=== PATIENT | male | born 1955 | race African-American/Black ===

== ENCOUNTER 2024-02-28 01:15 | Inpatient (IN) | payer MEDICARE, MEDICAID ==
[~2024-02-28] VITALS: Ht 182.9 cm; Wt 132.9 kg
[2024-02-28] VITALS (11 sets, daily range): BP systolic 145–189; BP diastolic 84–105; PULSE 65–88; RESP 16–22; TEMP 36.2512–36.9474; O2SAT 95–100
[2024-02-28 03:13] LABS: HEMATOCRIT. 28.8 % (42.0-52.0); HEMOGLOBIN. 9.3 g/dL (14.0-18.0); MEAN CORPUSCULAR HEMOGLOBIN 27.4 pg (28.0-32.0); MEAN CORPUSCULAR HGB CONC 32.4 g/dL (31.0-37.0); MEAN CORPUSCULAR VOLUME 84.6 fL (80.0-94.0); MEAN PLATELET VOLUME 9.1 fl (7.4-10.4); PLATELET 158 x1000/uL (130-400); RED CELL DISTRIBUTION WIDTH 16.3 % (11.6-14.6); WHITE BLOOD COUNT 9.8 x1000/uL (4.5-11.0)
[2024-02-28 03:15] LABS: DIFFERENTIAL COMMENT 1
[2024-02-28 03:22] LABS: CHLORIDE 104 mEq/L (98-107); SODIUM 136 mEq/L (136-145)
[2024-02-28 03:23] LABS: CARBON DIOXIDE 16 mEq/L (21-32)
[2024-02-28 03:24] LABS: CALCIUM 9.4 mg/dL (8.7-10.4)
[2024-02-28 03:29] LABS: GLUCOSE 113 mg/dL (70-105); UREA NITROGEN BLOOD 81 mg/dL (9-23)
[2024-02-28 03:30] LABS: TROPONIN I HIGH SENSITIVITY 43 ng/L (3.0-53)
[2024-02-28 03:42] LABS: ETHANOL BLOOD < 10 mg/dL (<10)
[2024-02-28 03:43] LABS: POTASSIUM 6.5 mEq/L (3.5-5.1)
[2024-02-28 04:14] LABS: CLARITY URINE CLEAR (CLEAR); COLOR URINE YELLOW (YELLOW); GLUCOSE URINE NEGATIVE (NEGATIVE); KETONES URINE NEGATIVE (NEGATIVE); LEUKOCYTE ESTERASE URINE 1+ (NEGATIVE); NITRITE URINE NEGATIVE (NEGATIVE); OCCULT BLOOD URINE 1+ (NEGATIVE); PROTEIN URINE NEGATIVE (NEGATIVE); SPECIFIC GRAVITY URINE 1.007 (1.005-1.030); UROBILINOGEN URINE 0.2 E.U./dL (0.2-1.0)
[2024-02-28 04:32] LABS: *AMPHETAMINES SCREEN URINE NEGATIVE (NEGATIVE); *BARBITURATES SCREEN URINE NEGATIVE (NEGATIVE); *BENZODIAZEPINES SCREEN URINE NEGATIVE (NEGATIVE); *COCAINE SCREEN URINE PRESUMPTIVE POSITIVE (NEGATIVE); CANNABINOID URINE SCREEN NEGATIVE (NEGATIVE); ECSTASY MDMA SCREEN URINE NEGATIVE (NEGATIVE); METHADONE URINE SCREEN NEGATIVE (NEGATIVE); OPIATES URINE SCREEN NEGATIVE (NEGATIVE); PHENCYCLIDINE URINE SCREEN NEGATIVE (NEGATIVE)
[2024-02-28 04:43] LABS: PLATELET ESTIMATE NORMAL
[2024-02-28] MEDS: MORPHINE SULFATE 2 MG/ML INJ (NOT FOR IM USE) IV ONE (04:53)
[2024-02-28] MEDS: DEXTROSE 50% WATER 50ML SYRINGE IV ONE (04:56)
[2024-02-28] MEDS: CALCIUM GLUCONATE 100MG/ML 10ML VIAL IV ONE (04:57)
[2024-02-28] MEDS: FUROSEMIDE 100MG/10ML VIAL IV STA (04:57)
[2024-02-28] MEDS: INSULIN REGULAR (HUMULIN R) 1000UNITS/10ML VIAL IV ONE (05:00)
[2024-02-28 05:33] LABS: BACTERIA URINE NONE SEEN; SQUAMOUS EPITHELIAL CELL URINE FEW /lpf (RARE/1+)
[2024-02-28] MEDS ORDERED: ACETAMINOPHEN 325MG TABLET PO PRN (06:30)
[2024-02-28] MEDS ORDERED: MAGNESIUM/ALUMINUM HYDROXIDE/SIMETHICONE 30ML UDC PO PRN (06:30)
[2024-02-28] MEDS ORDERED: GUAIFENESIN 200MG/10ML SUGAR FREE UDC PO PRN (06:30)
[2024-02-28] MEDS: SODIUM POLYSTYRENE SULFONATE 15 G/60 ML BOT PO NR (06:46)
[2024-02-28] MEDS: NITROGLYCERIN 0.4MG TABLET SL SL PRN (06:46)
[2024-02-28 08:08] LABS: IRON 69 ug/dL (65-175)
[2024-02-28 08:09] LABS: LDL CHOLESTEROL 100 mg/dL (5-100); TRIGLYCERIDE 93 mg/dL (0-150)
[2024-02-28 08:10] LABS: CHOLESTEROL 165 mg/dL (<200); HDL CHOLESTEROL 43 mg/dL (>55)
[2024-02-28 08:11] LABS: TOTAL IRON BINDING CAPACITY 183 ug/dl (250-425)
[2024-02-28 08:13] LABS: THYROID STIMULATING HORMONE 1.92 uIU/mL (0.55-4.78)
[2024-02-28 08:16] LABS: VITAMIN B12 SERUM 524 pg/mL (211-911)
[2024-02-28 08:27] LABS: HEPATITIS B SURFACE ANTIGEN NEGATIVE (Negative)
[2024-02-28 08:47] LABS: HEPATITIS A AB IGM NEGATIVE (Negative)
[2024-02-28 08:48] LABS: HEPATITIS B CORE AB IGM NEGATIVE (Negative); HEPATITIS C AB NON REACTIVE (Neg) (Negative)
[2024-02-28] MEDS: FAMOTIDINE 20MG TABLET PO SCH (09:17)
[2024-02-28] MEDS: NIFEDIPINE XL 60MG TAB PO SCH (09:17)
[2024-02-28] MEDS: ASPIRIN 81MG EC TABLET PO SCH (09:17)
[2024-02-28] MEDS: ENOXAPARIN 30MG/0.3ML SYR SUBCUT SCH (09:18)
[2024-02-28 09:20] LABS: CHLORIDE 103 mEq/L (98-107); SODIUM 136 mEq/L (136-145)
[2024-02-28 09:21] LABS: CARBON DIOXIDE 19 mEq/L (21-32)
[2024-02-28 09:22] LABS: CALCIUM 10.2 mg/dL (8.7-10.4)
[2024-02-28 09:26] LABS: GLUCOSE 80 mg/dL (70-105)
[2024-02-28 09:27] LABS: UREA NITROGEN BLOOD 92 mg/dL (9-23)
[2024-02-28] MEDS: LORAZEPAM 2MG/ML INJ ONE (09:31)
[2024-02-28 09:36] LABS: POTASSIUM 6.8 mEq/L (3.5-5.1)
[2024-02-28] MEDS ORDERED: LEVETIRACETAM 500MG PREMIX 100 ML IV SCH ×3 (09:45→21:00)
[2024-02-28 10:02] LABS: PARTIAL THROMBOPLASTIN TIME 24.4 sec (23.4-31.0); PROTHROMBIN TIME 11.1 sec (9.6-11.0)
[2024-02-28 10:14] LABS: BASOPHILS % 0.2 % (0.0-2.0); EOSINOPHILS % 0.5 % (0.0-5.0); HEMATOCRIT. 28.2 % (42.0-52.0); HEMOGLOBIN. 9.1 g/dL (14.0-18.0); LYMPHOCYTES % 9.4 % (20.0-50.0); MEAN CORPUSCULAR HEMOGLOBIN 27.2 pg (28.0-32.0); MEAN CORPUSCULAR HGB CONC 32.4 g/dL (31.0-37.0); MEAN PLATELET VOLUME 9.4 fl (7.4-10.4); MONOCYTES % 6.6 % (2.0-8.0); NEUTROPHILS % 83.3 % (40.0-76.0); PLATELET 164 x1000/uL (130-400); RED BLOOD CELL COUNT 3.35 mill/uL (4.7-6.1); WHITE BLOOD COUNT 9.5 x1000/uL (4.5-11.0)
[2024-02-28 10:26] LABS: T4 FREE 1.17 ng/dL (0.89-1.76)
[2024-02-28] MEDS ORDERED: LIDOCAINE HCL 1% 10 MG/ML 10ML VIAL ONE (10:33)
[2024-02-28 10:48] LABS: BG BASE EXCESS -16.8 mmol/L (-2.0-2.0); BG CARBOXYHEMOGLOBIN 0.8 % (0.5-1.5); BG DEOXYHEMOGLOBIN 2.9 % (0.0-5.0); BG FRACTION INSPIRED OXYGEN 40; BG HCO3 ACT 10.7 mmol/L (22.0-26.0); BG OXYGEN SATURATION 97.1 % (92.0-98.5); BG OXYHEMOGLOBIN 96.3 % (94.0-97.0); BG PCO2 31.2 mmHg (35.0-45.0); BG PH 7.153 (7.350-7.450); BG PO2 115.3 mmHg (75.0-100.0); BG SAMPLE SITE RIGHT RADIAL; BG TOTAL HEMOGLOBIN 10.4 g/dL (12.0-18.0); BG VENT MODE NASAL CANNULA
[2024-02-28] MEDS: CLONIDINE 0.1MG TABLET PO PRN (15:40)
[2024-02-28] MEDS: SODIUM BICARBONATE 8.4% 50MEQ/50ML SYR IV NR ×2 (15:41→18:57)
[2024-02-28] MEDS: PHENYTOIN SODIUM 1,000 MG in SODIUM CHLORIDE 0.9% 100 ML IV NR (15:41)
[2024-02-28] MEDS: SODIUM ZIRCONIUM CYCLOSILICATE 10GM/PACKET PO NR (15:42)
[2024-02-28] MEDS: DEXTROSE 50% WATER 50ML SYRINGE IV NR (15:42)
[2024-02-28] MEDS: INSULIN REGULAR (HUMULIN R) 1000UNITS/10ML VIAL IV NR (15:44)
[2024-02-28 16:32] LABS: CREATINE KINASE MB FRACTION 4.4 ng/mL (0.5-3.6)
[2024-02-28] MEDS ORDERED: LEVETIRACETAM 1,000MG in NACL 100ML PREMIX IV SCH (21:00)
[2024-02-28] MEDS: ACETAMINOPHEN 325MG TABLET PO PRN (22:03)
[2024-02-28] MEDS: ZOLPIDEM TARTRATE 5MG TABLET PO PRN (22:03)
[2024-02-28] MEDS: LEVETIRACETAM 1000MG PREMIX 100 ML IV SCH (22:04)
[2024-02-28] MEDS: ENOXAPARIN 100MG/ML SYR SUBCUT SCH (22:28)
[2024-02-29] VITALS (9 sets, daily range): BP systolic 142–174; BP diastolic 74–112; PULSE 66–88; RESP 16–20; TEMP 36.44736–37.66968; O2SAT 92–100
[2024-02-29 01:31] LABS: CREATINE KINASE MB FRACTION 3.2 ng/mL (0.5-3.6)
[2024-02-29 09:48] LABS: BASOPHILS % 0.4 % (0.0-2.0); EOSINOPHILS % 5.8 % (0.0-5.0); HEMATOCRIT. 28.2 % (42.0-52.0); HEMOGLOBIN. 9.2 g/dL (14.0-18.0); LYMPHOCYTES % 18.8 % (20.0-50.0); MEAN CORPUSCULAR HEMOGLOBIN 27.5 pg (28.0-32.0); MEAN CORPUSCULAR HGB CONC 32.8 g/dL (31.0-37.0); MEAN CORPUSCULAR VOLUME 83.7 fL (80.0-94.0); MEAN PLATELET VOLUME 9.4 fl (7.4-10.4); MONOCYTES % 5.6 % (2.0-8.0); NEUTROPHILS % 69.4 % (40.0-76.0); PLATELET 152 x1000/uL (130-400); RED BLOOD CELL COUNT 3.37 mill/uL (4.7-6.1); RED CELL DISTRIBUTION WIDTH 15.6 % (11.6-14.6); WHITE BLOOD COUNT 6.4 x1000/uL (4.5-11.0)
[2024-02-29 10:08] LABS: CHLORIDE 106 mEq/L (98-107); POTASSIUM 4.7 mEq/L (3.5-5.1); SODIUM 140 mEq/L (136-145)
[2024-02-29 10:09] LABS: CARBON DIOXIDE 25 mEq/L (21-32)
[2024-02-29 10:14] LABS: GLUCOSE 119 mg/dL (70-105)
[2024-02-29 10:15] LABS: UREA NITROGEN BLOOD 52 mg/dL (9-23)
[2024-02-29 10:16] LABS: ALANINE AMINOTRANSFERASE < 7 IU/L (10-49); ALBUMIN 3.9 g/dL (3.2-4.8); ASPARTATE AMINOTRANSFERASE 16 IU/L (<34); BILIRUBIN DIRECT 0.1 mg/dL (<=3.0); CREATINE KINASE 260 IU/L (46-171)
[2024-02-29 10:17] LABS: BILIRUBIN TOTAL 0.4 mg/dL (0.1-1.0); PHOSPHORUS 6.5 mg/dL (2.5-4.9); PROTEIN TOTAL 6.9 g/dL (6.0-8.3)
[2024-02-29 10:32] LABS: CREATININE 11.9 mg/dL (0.6-1.3)
[2024-02-29] MEDS: PHENYTOIN SODIUM 500 MG in SODIUM CHLORIDE 0.9% 50 ML IV NR (18:44)
[2024-03-01] VITALS: BP 168/88; PULSE 20; RESP 20; TEMP 36.78072; O2SAT 99
[2024-03-01 04:00] VITALS: BP 171/103; PULSE 20; RESP 19; TEMP 37.11408; O2SAT 99
[2024-03-01 07:40] LABS: CARBON DIOXIDE 25 mEq/L (21-32); CHLORIDE 106 mEq/L (98-107); POTASSIUM 5.2 mEq/L (3.5-5.1); SODIUM 143 mEq/L (136-145)
[2024-03-01 07:41] LABS: CALCIUM 9.2 mg/dL (8.7-10.4)
[2024-03-01 07:46] LABS: GLUCOSE 80 mg/dL (70-105); UREA NITROGEN BLOOD 61 mg/dL (9-23)
[2024-03-01 07:47] LABS: BASOPHILS % 0.6 % (0.0-2.0); EOSINOPHILS % 6.1 % (0.0-5.0); LYMPHOCYTES % 29.4 % (20.0-50.0); MEAN CORPUSCULAR HEMOGLOBIN 27.2 pg (28.0-32.0); MEAN CORPUSCULAR HGB CONC 32.2 g/dL (31.0-37.0); MEAN CORPUSCULAR VOLUME 84.7 fL (80.0-94.0); MEAN PLATELET VOLUME 9.7 fl (7.4-10.4); MONOCYTES % 8.3 % (2.0-8.0); NEUTROPHILS % 55.6 % (40.0-76.0); PLATELET 150 x1000/uL (130-400); RED BLOOD CELL COUNT 3.66 mill/uL (4.7-6.1); RED CELL DISTRIBUTION WIDTH 15.9 % (11.6-14.6); WHITE BLOOD COUNT 7.6 x1000/uL (4.5-11.0)
[2024-03-01 08:20] LABS: CREATININE 12.7 mg/dL (0.6-1.3); PHOSPHORUS 8.4 mg/dL (2.5-4.9)
[2024-03-01] MEDS: FAMOTIDINE 20MG TABLET PO SCH (09:40)
[2024-03-01 12:00] VITALS: BP 176/104; PULSE 74; RESP 19; TEMP 36.61404; O2SAT 100
[2024-03-01] MEDS: SEVELAMER CARBONATE 800 MG TABLET PO SCH (12:10)
[2024-03-01] MEDS: PHENYTOIN SODIUM EXTENDED 100MG CAPSULE PO SCH (14:00)
[2024-03-01 16:00] VITALS: BP 161/90; PULSE 73; RESP 19; TEMP 36.78072; O2SAT 100
[2024-03-01 20:00] VITALS: BP 141/89; PULSE 77; RESP 18; TEMP 36.3918; O2SAT 97
[2024-03-01] MEDS: ENOXAPARIN 150MG/ML SYR SUBCUT SCH (21:25)
[2024-03-02] VITALS (15 sets, daily range): BP systolic 144–196; BP diastolic 91–121; PULSE 78–176; RESP 18–20; TEMP 36.61404–37.7808; O2SAT 95–100
[2024-03-02 07:23] LABS: BASOPHILS % 0.3 % (0.0-2.0); EOSINOPHILS % 7.6 % (0.0-5.0); HEMATOCRIT. 26.3 % (42.0-52.0); HEMOGLOBIN. 8.6 g/dL (14.0-18.0); MEAN CORPUSCULAR HEMOGLOBIN 27.4 pg (28.0-32.0); MEAN CORPUSCULAR HGB CONC 32.8 g/dL (31.0-37.0); MEAN CORPUSCULAR VOLUME 83.5 fL (80.0-94.0); MEAN PLATELET VOLUME 9.5 fl (7.4-10.4); MONOCYTES % 9.1 % (2.0-8.0); PLATELET 148 x1000/uL (130-400); RED BLOOD CELL COUNT 3.16 mill/uL (4.7-6.1); RED CELL DISTRIBUTION WIDTH 15.9 % (11.6-14.6); WHITE BLOOD COUNT 7.5 x1000/uL (4.5-11.0)
[2024-03-02 07:33] LABS: CARBON DIOXIDE 25 mEq/L (21-32); CHLORIDE 104 mEq/L (98-107); POTASSIUM 5.3 mEq/L (3.5-5.1); SODIUM 141 mEq/L (136-145)
[2024-03-02 07:35] LABS: CALCIUM 9.3 mg/dL (8.7-10.4)
[2024-03-02 07:39] LABS: GLUCOSE 78 mg/dL (70-105)
[2024-03-02 07:40] LABS: UREA NITROGEN BLOOD 73 mg/dL (9-23)
[2024-03-02 07:46] LABS: CREATININE 14.1 mg/dL (0.6-1.3)
[2024-03-02 07:49] LABS: PHOSPHORUS 8.5 mg/dL (2.5-4.9)
[2024-03-02] MEDS: SODIUM POLYSTYRENE SULFONATE 15 G/60 ML BOT PO NR (11:41)
[2024-03-02 13:10] LABS: ATYPICAL P-ANCA <1:20 titer (Neg:<1:20); CYTOPLASMIC C-ANCA <1:20 titer (Neg:<1:20); PERINUCLEAR P-ANCA <1:20 titer (Neg:<1:20)
[2024-03-02] MEDS: DOCUSATE SODIUM 100MG CAPSULE PO PRN (14:14)
[2024-03-02 17:06] LABS: ANTI-MYELOPEROXIDASE AB < 0.2 units (0.0-0.9); ANTI-PROTEINASE 3 ABS < 0.2 units (0.0-0.9); GLOMERULAR BASEMENT MEMB AB < 0 units (0.0-0.9)
[2024-03-03] VITALS: BP 174/107; PULSE 94; RESP 20; TEMP 36.61404; O2SAT 95
[2024-03-03 04:00] VITALS: BP 157/104; PULSE 89; RESP 20; TEMP 36.61404; O2SAT 96
[2024-03-03 07:39] LABS: BASOPHILS % 0.4 % (0.0-2.0); EOSINOPHILS % 9.8 % (0.0-5.0); HEMATOCRIT. 25.3 % (42.0-52.0); HEMOGLOBIN. 8.4 g/dL (14.0-18.0); LYMPHOCYTES % 24.6 % (20.0-50.0); MEAN CORPUSCULAR HEMOGLOBIN 27.4 pg (28.0-32.0); MEAN PLATELET VOLUME 9.7 fl (7.4-10.4); MONOCYTES % 8.1 % (2.0-8.0); NEUTROPHILS % 57.1 % (40.0-76.0); PLATELET 151 x1000/uL (130-400); RED BLOOD CELL COUNT 3.05 mill/uL (4.7-6.1); RED CELL DISTRIBUTION WIDTH 15.7 % (11.6-14.6); WHITE BLOOD COUNT 7.7 x1000/uL (4.5-11.0)
[2024-03-03 07:42] LABS: CARBON DIOXIDE 25 mEq/L (21-32); CHLORIDE 104 mEq/L (98-107); SODIUM 140 mEq/L (136-145)
[2024-03-03 07:47] LABS: GLUCOSE 83 mg/dL (70-105)
[2024-03-03 07:48] LABS: UREA NITROGEN BLOOD 48 mg/dL (9-23)
[2024-03-03 07:50] LABS: PHOSPHORUS 5.4 mg/dL (2.5-4.9)
[2024-03-03 08:00] VITALS: BP 134/76; PULSE 83; RESP 19; TEMP 36.61404; O2SAT 98
[2024-03-03 08:25] LABS: CREATININE 12.1 mg/dL (0.6-1.3)
[2024-03-03] MEDS: LEVETIRACETAM 1,000 MG in SODIUM CHLORIDE 0.9% 100 ML IV SCH (09:30)
[2024-03-03] MEDS: SEVELAMER CARBONATE 800 MG TABLET PO SCH (13:03)
[2024-03-03] MEDS: HYDRALAZINE HCL 50MG TABLET PO SCH (17:20)
[2024-03-03 20:00] VITALS: BP 155/82; PULSE 84; RESP 19; TEMP 37.2252; O2SAT 95
[2024-03-03] MEDS: LEVETIRACETAM 1000MG PREMIX 100 ML IV SCH (21:14)
[2024-03-04] VITALS (16 sets, daily range): BP systolic 141–189; BP diastolic 10–105; PULSE 70–102; RESP 17–20; TEMP 36.3918–37.11408; O2SAT 95–100
[2024-03-04 07:57] LABS: CHLORIDE 106 mEq/L (98-107); POTASSIUM 5.2 mEq/L (3.5-5.1); SODIUM 139 mEq/L (136-145)
[2024-03-04 07:58] LABS: CALCIUM 8.9 mg/dL (8.7-10.4); CARBON DIOXIDE 26 mEq/L (21-32)
[2024-03-04 08:03] LABS: GLUCOSE 85 mg/dL (70-105); UREA NITROGEN BLOOD 62 mg/dL (9-23)
[2024-03-04 08:05] LABS: BASOPHILS % 0.3 % (0.0-2.0); EOSINOPHILS % 11.6 % (0.0-5.0); HEMATOCRIT. 24.6 % (42.0-52.0); HEMOGLOBIN. 8.2 g/dL (14.0-18.0); LYMPHOCYTES % 26.5 % (20.0-50.0); MEAN CORPUSCULAR HEMOGLOBIN 27.8 pg (28.0-32.0); MEAN CORPUSCULAR HGB CONC 33.3 g/dL (31.0-37.0); MEAN CORPUSCULAR VOLUME 83.6 fL (80.0-94.0); MEAN PLATELET VOLUME 9.8 fl (7.4-10.4); MONOCYTES % 9.3 % (2.0-8.0); NEUTROPHILS % 52.3 % (40.0-76.0); PHOSPHORUS 6.2 mg/dL (2.5-4.9); PLATELET 151 x1000/uL (130-400); RED BLOOD CELL COUNT 2.94 mill/uL (4.7-6.1); RED CELL DISTRIBUTION WIDTH 15.5 % (11.6-14.6); WHITE BLOOD COUNT 7.1 x1000/uL (4.5-11.0)
[2024-03-04 08:29] LABS: CREATININE 12.9 mg/dL (0.6-1.3)
[2024-03-04] MEDS: IPRATROPIUM/ALBUTEROL 0.5-3(2.5)MG/3ML NEB NEB PRN (12:27)
[2024-03-04] MEDS: HYDRALAZINE HCL 100MG TABLET PO SCH (14:36)
[2024-03-04] MEDS ORDERED: ENOXAPARIN 150MG/ML SYR SUBCUT SCH (21:00)
[2024-03-05] VITALS: BP 164/107; PULSE 87; RESP 18; TEMP 36.3918; O2SAT 95
[2024-03-05 04:00] VITALS: BP 186/105; PULSE 83; RESP 18; TEMP 36.28068; O2SAT 95
[2024-03-05 07:40] LABS: BASOPHILS % 0.5 % (0.0-2.0); EOSINOPHILS % 9.9 % (0.0-5.0); HEMATOCRIT. 26.3 % (42.0-52.0); HEMOGLOBIN. 8.4 g/dL (14.0-18.0); MEAN CORPUSCULAR HEMOGLOBIN 27.4 pg (28.0-32.0); MEAN CORPUSCULAR VOLUME 85.5 fL (80.0-94.0); MEAN PLATELET VOLUME 9.8 fl (7.4-10.4); MONOCYTES % 9.6 % (2.0-8.0); PLATELET 155 x1000/uL (130-400); RED BLOOD CELL COUNT 3.08 mill/uL (4.7-6.1); RED CELL DISTRIBUTION WIDTH 15.6 % (11.6-14.6); WHITE BLOOD COUNT 7.4 x1000/uL (4.5-11.0)
[2024-03-05 07:44] LABS: CARBON DIOXIDE 24 mEq/L (21-32); CHLORIDE 105 mEq/L (98-107); POTASSIUM 4.5 mEq/L (3.5-5.1); SODIUM 141 mEq/L (136-145)
[2024-03-05 07:45] LABS: CALCIUM 9.5 mg/dL (8.7-10.4)
[2024-03-05 07:50] LABS: GLUCOSE 95 mg/dL (70-105); UREA NITROGEN BLOOD 48 mg/dL (9-23)
[2024-03-05 07:52] LABS: CREATININE 11.1 mg/dL (0.6-1.3); PHOSPHORUS 4.7 mg/dL (2.5-4.9)
[2024-03-05 08:00] VITALS: BP 161/99; PULSE 80; RESP 19; TEMP 36.61404; O2SAT 100
[2024-03-05 12:00] VITALS: BP 143/87; PULSE 78; RESP 21; TEMP 36.28068; O2SAT 100
[2024-03-05 16:00] VITALS: BP 145/89; PULSE 84; RESP 19; TEMP 36.28068; O2SAT 100
[2024-03-05 20:00] VITALS: BP 172/107; PULSE 104; RESP 18; TEMP 36.16956; O2SAT 100
[2024-03-05] MEDS: DOXAZOSIN MESYLATE 4MG TABLET PO SCH (20:34)
[2024-03-06] VITALS: BP 139/81; PULSE 94; RESP 18; TEMP 37.16964; O2SAT 92
[2024-03-06 08:00] VITALS: BP 169/102; PULSE 90; RESP 20; TEMP 36.83628; O2SAT 100
[2024-03-06 08:02] LABS: CHLORIDE 105 mEq/L (98-107); SODIUM 140 mEq/L (136-145)
[2024-03-06 08:03] LABS: CARBON DIOXIDE 25 mEq/L (21-32)
[2024-03-06 08:08] LABS: GLUCOSE 82 mg/dL (70-105); UREA NITROGEN BLOOD 59 mg/dL (9-23)
[2024-03-06 08:10] LABS: PHOSPHORUS 4.9 mg/dL (2.5-4.9)
[2024-03-06 08:11] LABS: CREATININE 13.8 mg/dL (0.6-1.3)
[2024-03-06 09:07] LABS: BASOPHILS % 0.5 % (0.0-2.0); EOSINOPHILS % 8.8 % (0.0-5.0); HEMATOCRIT. 24.4 % (42.0-52.0); LYMPHOCYTES % 28.4 % (20.0-50.0); MEAN CORPUSCULAR HEMOGLOBIN 27.5 pg (28.0-32.0); MEAN CORPUSCULAR HGB CONC 32.8 g/dL (31.0-37.0); MEAN CORPUSCULAR VOLUME 83.8 fL (80.0-94.0); MEAN PLATELET VOLUME 10.1 fl (7.4-10.4); MONOCYTES % 8.7 % (2.0-8.0); NEUTROPHILS % 53.6 % (40.0-76.0); PLATELET 171 x1000/uL (130-400); RED BLOOD CELL COUNT 2.91 mill/uL (4.7-6.1); RED CELL DISTRIBUTION WIDTH 15.8 % (11.6-14.6); WHITE BLOOD COUNT 6.3 x1000/uL (4.5-11.0)
[2024-03-06 12:20] VITALS: BP 171/102; PULSE 83; RESP 20; TEMP 36.6696
[2024-03-06 16:00] VITALS: BP 138/77; PULSE 67; RESP 18; TEMP 36.55848; O2SAT 96
[2024-03-06 17:50] VITALS: PULSE 68; RESP 16; O2SAT 97
[2024-03-06] MEDS: IPRATROPIUM/ALBUTEROL 0.5-3(2.5)MG/3ML NEB HHN NR (17:50)
[2024-03-06 20:00] VITALS: BP 167/100; PULSE 97; RESP 20; TEMP 36.6696; O2SAT 96
[2024-03-07] VITALS (13 sets, daily range): BP systolic 105–177; BP diastolic 64–103; PULSE 75–102; RESP 16–21; TEMP 36.44736–37.2252; O2SAT 94–100
[2024-03-07 15:39] LABS: CHLORIDE 104 mEq/L (98-107); POTASSIUM 4.3 mEq/L (3.5-5.1); SODIUM 138 mEq/L (136-145)
[2024-03-07 15:40] LABS: CALCIUM 9.2 mg/dL (8.7-10.4); CARBON DIOXIDE 26 mEq/L (21-32)
[2024-03-07 15:45] LABS: BASOPHILS % 0.4 % (0.0-2.0); EOSINOPHILS % 8.1 % (0.0-5.0); GLUCOSE 106 mg/dL (70-105); HEMATOCRIT. 23.4 % (42.0-52.0); HEMOGLOBIN. 7.7 g/dL (14.0-18.0); LYMPHOCYTES % 21.1 % (20.0-50.0); MEAN CORPUSCULAR HEMOGLOBIN 27.8 pg (28.0-32.0); MEAN CORPUSCULAR HGB CONC 33.1 g/dL (31.0-37.0); MEAN CORPUSCULAR VOLUME 83.9 fL (80.0-94.0); MEAN PLATELET VOLUME 9.8 fl (7.4-10.4); MONOCYTES % 11.4 % (2.0-8.0); PLATELET 186 x1000/uL (130-400); RED BLOOD CELL COUNT 2.79 mill/uL (4.7-6.1); RED CELL DISTRIBUTION WIDTH 15.8 % (11.6-14.6); UREA NITROGEN BLOOD 41 mg/dL (9-23); WHITE BLOOD COUNT 5.8 x1000/uL (4.5-11.0)
[2024-03-07 15:47] LABS: CREATININE 10.5 mg/dL (0.6-1.3); PHOSPHORUS 3.6 mg/dL (2.5-4.9)
[2024-03-08] VITALS: BP 136/80; PULSE 88; RESP 20; TEMP 37.11408; O2SAT 99
[2024-03-08 04:00] VITALS: BP 142/89; PULSE 87; RESP 18; TEMP 36.55848; O2SAT 100
[2024-03-08 08:00] VITALS: BP 164/89; PULSE 87; RESP 18; TEMP 37.28076; O2SAT 95
[2024-03-08] MEDS: ONDANSETRON HCL 4MG/2ML INJ IV PRN (09:44)
[2024-03-08 12:00] VITALS: BP 134/72; PULSE 92; RESP 18; TEMP 36.89184; O2SAT 95
[2024-03-08 16:00] VITALS: BP 135/83; PULSE 97; RESP 18; TEMP 36.55848; O2SAT 95
[2024-03-08 20:00] VITALS: BP 161/90; PULSE 87; RESP 20; TEMP 36.61404; O2SAT 95
[2024-03-08] MEDS: LEVETIRACETAM 500MG TABLET PO SCH (21:04)
[2024-03-09] VITALS (12 sets, daily range): BP systolic 100–169; BP diastolic 68–111; PULSE 78–102; RESP 16–20; TEMP 35.61396–37.39188; O2SAT 95–100
[2024-03-09 09:30] LABS: BASOPHILS % 0.6 % (0.0-2.0); EOSINOPHILS % 6.1 % (0.0-5.0); HEMATOCRIT. 23.6 % (42.0-52.0); HEMOGLOBIN. 7.7 g/dL (14.0-18.0); MEAN CORPUSCULAR HEMOGLOBIN 27.4 pg (28.0-32.0); MEAN CORPUSCULAR HGB CONC 32.6 g/dL (31.0-37.0); MEAN CORPUSCULAR VOLUME 84.1 fL (80.0-94.0); MEAN PLATELET VOLUME 9.5 fl (7.4-10.4); MONOCYTES % 10.1 % (2.0-8.0); NEUTROPHILS % 53.2 % (40.0-76.0); PLATELET 200 x1000/uL (130-400); RED CELL DISTRIBUTION WIDTH 15.7 % (11.6-14.6); WHITE BLOOD COUNT 6.1 x1000/uL (4.5-11.0)
[2024-03-09 09:33] LABS: CHLORIDE 105 mEq/L (98-107); POTASSIUM 5.3 mEq/L (3.5-5.1); SODIUM 138 mEq/L (136-145)
[2024-03-09 09:34] LABS: CALCIUM 9.4 mg/dL (8.7-10.4); CARBON DIOXIDE 25 mEq/L (21-32)
[2024-03-09 09:39] LABS: GLUCOSE 131 mg/dL (70-105); UREA NITROGEN BLOOD 65 mg/dL (9-23)
[2024-03-09 09:41] LABS: PHOSPHORUS 3.9 mg/dL (2.5-4.9)
[2024-03-10] VITALS: BP 140/82; PULSE 95; RESP 18; TEMP 37.11408; O2SAT 96
[2024-03-10 04:00] VITALS: BP 143/71; PULSE 91; RESP 19; TEMP 37.16964; O2SAT 99
[2024-03-10 08:00] VITALS: BP 141/79; PULSE 100; RESP 20; TEMP 36.61404; O2SAT 100
[2024-03-10] MEDS ORDERED: CEFAZOLIN 1000MG PREMIX 50 ML IV ONE (12:00)
[2024-03-10] MEDS ORDERED: LIDOCAINE HCL 1% 20ML VIAL ONE (12:30)
[2024-03-10] MEDS ORDERED: LIDOCAINE HCL/EPINEPHRINE 1%-EPI 1:100,000 20ML VIAL ONE (12:34)
[2024-03-10 12:35] VITALS: BP 139/73; PULSE 84; RESP 20; TEMP 36.78072; O2SAT 100
[2024-03-10 14:10] VITALS: PULSE 91; RESP 24
[2024-03-10] MEDS: IPRATROPIUM/ALBUTEROL 0.5-3(2.5)MG/3ML NEB HHN SCH (14:11)
[2024-03-10 16:25] VITALS: BP 136/68; PULSE 8; RESP 20; TEMP 37.11408; O2SAT 1
[2024-03-10] MEDS ORDERED: PIPERACILLIN/TAZO 3.375G/50ML 50 ML IV SCH (20:00)
== END 2024-03-10 19:30 | disposition left against medical advice (07) | DRG 812 ==
LOC: ER 01:15 → 7EST 05:36 → 6WST 03-03 12:52
PROVIDERS: ADMIT Internal Medicine; ATTEND Internal Medicine
PROC: 02HV33Z Insertion of Infusion Device into Superior Vena Cava, Percutaneous Approach (ICD-10-PCS; principal; 2024-02-28)
PROC: B548ZZA Ultrasonography of Superior Vena Cava, Guidance (ICD-10-PCS; 2024-02-28)
PROC: 5A1D70Z Performance of Urinary Filtration, Intermittent, Less than 6 Hours Per Day (ICD-10-PCS; 2024-02-28)
PROC: 5A1D70Z Performance of Urinary Filtration, Intermittent, Less than 6 Hours Per Day (ICD-10-PCS; 2024-02-29)
PROC: 5A1D70Z Performance of Urinary Filtration, Intermittent, Less than 6 Hours Per Day (ICD-10-PCS; 2024-03-02)
PROC: 5A1D70Z Performance of Urinary Filtration, Intermittent, Less than 6 Hours Per Day (ICD-10-PCS; 2024-03-04)
PROC: 5A1D70Z Performance of Urinary Filtration, Intermittent, Less than 6 Hours Per Day (ICD-10-PCS; 2024-03-07)
PROC: 5A1D70Z Performance of Urinary Filtration, Intermittent, Less than 6 Hours Per Day (ICD-10-PCS; 2024-03-09)
DX: T50.911A Poisoning by multiple unspecified drugs, medicaments and biological substances, accidental (unintentional), initial encounter (principal); J96.00 Acute respiratory failure, unspecified whether with hypoxia or hypercapnia; N17.0 Acute kidney failure with tubular necrosis; G92.8 Other toxic encephalopathy; G40.804 Other epilepsy, intractable, without status epilepticus; D63.1 Anemia in chronic kidney disease; E87.20 Acidosis, unspecified; G40.909 Epilepsy, unspecified, not intractable, without status epilepticus; I31.39 Other pericardial effusion (noninflammatory); I13.11 Hypertensive heart and chronic kidney disease without heart failure, with stage 5 chronic kidney disease, or end stage renal disease; N13.30 Unspecified hydronephrosis; N18.6 End stage renal disease; Z53.29 Procedure and treatment not carried out because of patient's decision for other reasons; E87.5 Hyperkalemia; F19.10 Other psychoactive substance abuse, uncomplicated; I16.0 Hypertensive urgency; J81.1 Chronic pulmonary edema; E78.5 Hyperlipidemia, unspecified; F14.129 Cocaine abuse with intoxication, unspecified; I20.9 Angina pectoris, unspecified; G62.9 Polyneuropathy, unspecified; Z82.49 Family history of ischemic heart disease and other diseases of the circulatory system; Z86.718 Personal history of other venous thrombosis and embolism; Z95.828 Presence of other vascular implants and grafts; Z99.2 Dependence on renal dialysis
CPT/HCPCS: 36415; 36556; 36600; 70551; 71045; 74176; 76770; 76937; 80048; 80053; 80061; 80076; 80185; 80305; 80320; 81003; 82375; 82550; 82553; 82607; 82746; 82805; 82962; 83036; 83516; 83520; 83540; 83550; 83605; 83735; 83880; 84100; 84145; 84439; 84443; 84484; 85025; 86256; 86705; 86706; 86709; 87340; 90935; 93005; 93306; 93880; 93970; 94640; 97162; 97166; 99285; C1725; J0610; J0690; J1165; J1642; J1650; J1815; J1940; J1953; J2060; J2270; J2405; J3490; J7050; G0480

== ENCOUNTER 2024-03-25 20:55 | Inpatient (IN) | payer MEDICARE, MEDICAID ==
[~2024-03-25] VITALS: Ht 182.9 cm; Wt 125.2 kg
[2024-03-25 23:26] LABS: BASOPHILS % 0.6 % (0.0-2.0); EOSINOPHILS % 5.7 % (0.0-5.0); HEMATOCRIT. 23.2 % (42.0-52.0); HEMOGLOBIN. 7.6 g/dL (14.0-18.0); LYMPHOCYTES % 14.9 % (20.0-50.0); MEAN CORPUSCULAR HEMOGLOBIN 27.4 pg (28.0-32.0); MEAN PLATELET VOLUME 8.8 fl (7.4-10.4); MONOCYTES % 9.5 % (2.0-8.0); NEUTROPHILS % 69.3 % (40.0-76.0); PLATELET 278 x1000/uL (130-400); RED BLOOD CELL COUNT 2.79 mill/uL (4.7-6.1); RED CELL DISTRIBUTION WIDTH 15.3 % (11.6-14.6)
[2024-03-26 00:03] LABS: CALCIUM 9.9 mg/dL (8.7-10.4); CARBON DIOXIDE 18 mEq/L (21-32)
[2024-03-26 00:07] LABS: TROPONIN I HIGH SENSITIVITY 36 ng/L (3.0-53)
[2024-03-26 00:08] LABS: GLUCOSE 76 mg/dL (70-105); UREA NITROGEN BLOOD 97 mg/dL (9-23)
[2024-03-26 00:37] LABS: ETHANOL BLOOD < 10 mg/dL (<10)
[2024-03-26 00:38] LABS: CREATININE 16.8 mg/dL (0.6-1.3)
[2024-03-26 01:13] LABS: CHLORIDE 107 mEq/L (98-107); POTASSIUM 5.2 mEq/L (3.5-5.1); SODIUM 138 mEq/L (136-145)
[2024-03-26 04:00] VITALS: BP 148/91; PULSE 105; RESP 20; TEMP 36.33624; O2SAT 98
[2024-03-26] MEDS: HYDROCODONE/ACETAMINOPHEN 5/325MG TABLET PO ONE (05:09)
[2024-03-26] MEDS ORDERED: ACETAMINOPHEN 325MG TABLET PO PRN (05:45)
[2024-03-26] MEDS ORDERED: DIPHENHYDRAMINE 50MG/ML VIAL IV PRN (05:45)
[2024-03-26] MEDS: HYDRALAZINE HCL 100MG TABLET PO SCH (06:37)
[2024-03-26] MEDS: SODIUM CHLORIDE 0.9% 3ML FLUSH IVF SCH (06:38)
[2024-03-26] MEDS: ACETAMINOPHEN 325MG TABLET PO PRN (06:38)
[2024-03-26 08:00] VITALS: BP 172/106; PULSE 101; RESP 17; TEMP 36.44736; O2SAT 96
[2024-03-26] MEDS: SEVELAMER CARBONATE 800 MG TABLET PO SCH (08:06)
[2024-03-26] MEDS: LEVETIRACETAM 500MG/5ML CUP PO SCH (09:00)
[2024-03-26] MEDS: FOLIC ACID/VITAMIN B COMP W-C TABLET PO SCH (09:18)
[2024-03-26] MEDS: SODIUM BICARBONATE 8.4% 50MEQ/50ML SYR IV NR (13:28)
[2024-03-26] MEDS: SODIUM BICARBONATE 650MG TABLET PO SCH (14:04)
[2024-03-26] MEDS ORDERED: DOCU100T PO (17:13)
[2024-03-26] MEDS ORDERED: TAMS-11 PO (17:13)
[2024-03-26] MEDS ORDERED: APIX5TAB PO (17:13)
[2024-03-26] MEDS ORDERED: FINA5TAB11 PO (17:13)
[2024-03-26] MEDS ORDERED: NIFE-33 PO (17:13)
[2024-03-26] MEDS ORDERED: TIOT18CA3 IH (17:13)
[2024-03-26] MEDS ORDERED: CYAN100096 PO (17:13)
[2024-03-26] MEDS ORDERED: PANT40TA51 PO (17:13)
[2024-03-26] MEDS ORDERED: SEVE0.8P3 PO (17:13)
[2024-03-26 17:27] VITALS: BP 158/85; PULSE 90; RESP 18; TEMP 36.8628
[2024-03-26] MEDS ORDERED: LOPE2TAB26 MT (17:38)
[2024-03-26] MEDS ORDERED: *PATIENT'S OWN MEDICATION STORAGE XX SCH (18:00)
[2024-03-26] MEDS: ENOXAPARIN 40MG/0.4ML SYR SUBCUT SCH (21:07)
[2024-03-26] MEDS: SODIUM ZIRCONIUM CYCLOSILICATE 10GM/PACKET PO SCH (21:17)
[2024-03-27] VITALS: BP 173/99; PULSE 105; RESP 17; TEMP 36.33624; O2SAT 98
[2024-03-27 04:00] VITALS: BP 148/91; PULSE 105; RESP 16; TEMP 36.33624; O2SAT 98
[2024-03-27 06:47] LABS: BASOPHILS % 0.3 % (0.0-2.0); EOSINOPHILS % 6.1 % (0.0-5.0); HEMATOCRIT. 25.7 % (42.0-52.0); HEMOGLOBIN. 8.3 g/dL (14.0-18.0); LYMPHOCYTES % 18.8 % (20.0-50.0); MEAN CORPUSCULAR HEMOGLOBIN 26.9 pg (28.0-32.0); MEAN CORPUSCULAR HGB CONC 32.2 g/dL (31.0-37.0); MEAN CORPUSCULAR VOLUME 83.7 fL (80.0-94.0); MEAN PLATELET VOLUME 9.6 fl (7.4-10.4); MONOCYTES % 10.8 % (2.0-8.0); PLATELET 248 x1000/uL (130-400); RED BLOOD CELL COUNT 3.07 mill/uL (4.7-6.1); RED CELL DISTRIBUTION WIDTH 15.8 % (11.6-14.6); WHITE BLOOD COUNT 7.7 x1000/uL (4.5-11.0)
[2024-03-27 06:50] LABS: CHLORIDE 107 mEq/L (98-107); POTASSIUM 5.7 mEq/L (3.5-5.1); SODIUM 140 mEq/L (136-145)
[2024-03-27 06:51] LABS: CALCIUM 9.6 mg/dL (8.7-10.4); CARBON DIOXIDE 18 mEq/L (21-32); PARTIAL THROMBOPLASTIN TIME < 21.0 sec (23.4-31.0); PROTHROMBIN TIME 11.1 sec (9.6-11.0)
[2024-03-27 06:56] LABS: GLUCOSE 98 mg/dL (70-105); UREA NITROGEN BLOOD 82 mg/dL (9-23)
[2024-03-27 06:58] LABS: PHOSPHORUS 6.1 mg/dL (2.5-4.9)
[2024-03-27 07:05] LABS: CREATININE 15.8 mg/dL (0.6-1.3)
[2024-03-27 08:00] VITALS: BP 148/99; PULSE 100; RESP 18; TEMP 36.50292; O2SAT 95
[2024-03-27 12:00] VITALS: BP 145/92; PULSE 97; RESP 18; TEMP 36.61404; O2SAT 100
[2024-03-27] MEDS ORDERED: FENTANYL CITRATE/PF 50MCG/ML 2ML VIAL ONE (12:44)
[2024-03-27] MEDS ORDERED: LIDOCAINE HCL 1% 10 MG/ML 10ML VIAL ONE (12:44)
[2024-03-27] MEDS ORDERED: CEFAZOLIN 1000MG PREMIX 50 ML IV ONE (12:45)
[2024-03-27 13:16] LABS: HEPATITIS B SURFACE ANTIGEN NEGATIVE (Negative)
[2024-03-27 13:36] LABS: HEPATITIS A AB IGM NEGATIVE (Negative)
[2024-03-27 13:37] LABS: HEPATITIS C AB NON REACTIVE (Neg) (Negative)
[2024-03-27] MEDS: HYDROCODONE/ACETAMINOPHEN 5/325MG TABLET PO PRN (14:11)
[2024-03-27 14:20] LABS: *AMPHETAMINES SCREEN URINE NEGATIVE (NEGATIVE); *BARBITURATES SCREEN URINE NEGATIVE (NEGATIVE); *BENZODIAZEPINES SCREEN URINE NEGATIVE (NEGATIVE); *COCAINE SCREEN URINE PRESUMPTIVE POSITIVE (NEGATIVE)
[2024-03-27 14:21] LABS: CANNABINOID URINE SCREEN NEGATIVE (NEGATIVE); ECSTASY MDMA SCREEN URINE NEGATIVE (NEGATIVE); METHADONE URINE SCREEN NEGATIVE (NEGATIVE); OPIATES URINE SCREEN NEGATIVE (NEGATIVE); PHENCYCLIDINE URINE SCREEN PRESUMTIVE POSITIVE (NEGATIVE)
[2024-03-27 15:20] LABS: HEPATITIS B CORE AB IGM NEGATIVE (Negative)
[2024-03-27 16:00] VITALS: BP 165/100; PULSE 102; RESP 20; TEMP 37.7808; O2SAT 100
[2024-03-27] MEDS: CLONIDINE 0.1MG TABLET PO PRN (17:13)
[2024-03-27 20:00] VITALS: BP 159/107; PULSE 98; RESP 18; TEMP 36.61404; O2SAT 98
[2024-03-27] MEDS: EPOETIN ALFA-EPBX 4,000 UNIT/ML VIAL SUBCUT SCH (21:32)
[2024-03-28] VITALS: BP 125/84; PULSE 105; RESP 19; TEMP 36.61404; O2SAT 98
[2024-03-28 04:00] VITALS: BP 120/84; PULSE 100; RESP 19; TEMP 35.61396; O2SAT 96
[2024-03-28 06:24] LABS: CHLORIDE 110 mEq/L (98-107); SODIUM 142 mEq/L (136-145)
[2024-03-28 06:25] LABS: CALCIUM 9.5 mg/dL (8.7-10.4); CARBON DIOXIDE 18 mEq/L (21-32)
[2024-03-28 06:30] LABS: GLUCOSE 97 mg/dL (70-105); UREA NITROGEN BLOOD 87 mg/dL (9-23)
[2024-03-28 06:32] LABS: PHOSPHORUS 5.9 mg/dL (2.5-4.9)
[2024-03-28 06:57] LABS: CREATININE 15.1 mg/dL (0.6-1.3)
[2024-03-28 08:00] VITALS: BP 132/77; PULSE 100; RESP 18; TEMP 36.61404; O2SAT 100
[2024-03-28 09:01] LABS: BASOPHILS % 0.3 % (0.0-2.0); EOSINOPHILS % 7.3 % (0.0-5.0); HEMATOCRIT. 25.9 % (42.0-52.0); HEMOGLOBIN. 8.7 g/dL (14.0-18.0); LYMPHOCYTES % 21.3 % (20.0-50.0); MEAN CORPUSCULAR HEMOGLOBIN 27.4 pg (28.0-32.0); MEAN CORPUSCULAR HGB CONC 33.7 g/dL (31.0-37.0); MEAN CORPUSCULAR VOLUME 81.3 fL (80.0-94.0); MONOCYTES % 14.2 % (2.0-8.0); NEUTROPHILS % 56.9 % (40.0-76.0); RED BLOOD CELL COUNT 3.19 mill/uL (4.7-6.1); RED CELL DISTRIBUTION WIDTH 15.4 % (11.6-14.6)
[2024-03-28 09:10] LABS: DIFFERENTIAL COMMENT 1
[2024-03-28 12:00] VITALS: BP 146/87; PULSE 103; RESP 18; TEMP 37.2252; O2SAT 96
[2024-03-28 15:35] LABS: MEAN PLATELET VOLUME 10.1 fl (7.4-10.4)
[2024-03-28 15:36] LABS: PLATELET 239 x1000/uL (130-400)
[2024-03-28 16:00] VITALS: BP 155/106; PULSE 98; RESP 18; TEMP 37.11408; O2SAT 99
[2024-03-28 20:00] VITALS: BP 146/96; PULSE 102; RESP 20; TEMP 36.28068; O2SAT 98
[2024-03-29] VITALS (14 sets, daily range): BP systolic 101–201; BP diastolic 69–120; PULSE 64–113; RESP 16–21; TEMP 36.22512–37.16964; O2SAT 95–100
[2024-03-29] MEDS: ONDANSETRON HCL 4MG/2ML INJ IV PRN (02:51)
[2024-03-29 07:15] LABS: BASOPHILS % 0.5 % (0.0-2.0); EOSINOPHILS % 4.8 % (0.0-5.0); HEMATOCRIT. 25.6 % (42.0-52.0); HEMOGLOBIN. 8.4 g/dL (14.0-18.0); LYMPHOCYTES % 18.1 % (20.0-50.0); MEAN CORPUSCULAR HEMOGLOBIN 27.1 pg (28.0-32.0); MEAN CORPUSCULAR HGB CONC 32.6 g/dL (31.0-37.0); MEAN CORPUSCULAR VOLUME 83.1 fL (80.0-94.0); MEAN PLATELET VOLUME 9.8 fl (7.4-10.4); MONOCYTES % 9.2 % (2.0-8.0); NEUTROPHILS % 67.4 % (40.0-76.0); PLATELET 290 x1000/uL (130-400); RED BLOOD CELL COUNT 3.08 mill/uL (4.7-6.1); RED CELL DISTRIBUTION WIDTH 15.8 % (11.6-14.6); WHITE BLOOD COUNT 6.6 x1000/uL (4.5-11.0)
[2024-03-29 07:23] LABS: CARBON DIOXIDE 21 mEq/L (21-32); CHLORIDE 108 mEq/L (98-107); POTASSIUM 4.8 mEq/L (3.5-5.1); SODIUM 144 mEq/L (136-145)
[2024-03-29 07:24] LABS: CALCIUM 9.9 mg/dL (8.7-10.4)
[2024-03-29 07:29] LABS: GLUCOSE 87 mg/dL (70-105); UREA NITROGEN BLOOD 89 mg/dL (9-23)
[2024-03-29 07:31] LABS: PHOSPHORUS 5.2 mg/dL (2.5-4.9)
[2024-03-29 07:33] LABS: CREATININE 14.3 mg/dL (0.6-1.3)
[2024-03-29] MEDS ORDERED: CEFAZOLIN 1000MG PREMIX 50 ML IV ONE (12:23)
[2024-03-29] MEDS ORDERED: LIDOCAINE HCL 1% 10 MG/ML 10ML VIAL ONE (12:23)
[2024-03-29] MEDS ORDERED: PROPOFOL 200MG/20ML VIAL IV ONE (13:04)
[2024-03-29] MEDS ORDERED: EPHEDRINE SULFATE 50MG/ML VIAL ONE (13:04)
[2024-03-29] MEDS ORDERED: PHENYLEPHRINE HCL 10MG/ML 1ML IV ONE (13:07)
[2024-03-29] MEDS ORDERED: NALOXONE HCL 0.4MG/ML VIAL IV PRN (15:15)
[2024-03-30 00:03] VITALS: BP 130/99; PULSE 105; RESP 20; TEMP 37.2252; O2SAT 98
[2024-03-30 04:00] VITALS: BP 118/69; PULSE 105; RESP 21; TEMP 36.61404; O2SAT 96
[2024-03-30 08:00] VITALS: BP 140/95; PULSE 112; RESP 20; TEMP 36.78072; O2SAT 99
[2024-03-30] MEDS: SORBITOL 70% SOLN 30ML PO NR ×2 (10:24→17:49)
[2024-03-30] MEDS: TAMSULOSIN HCL 0.4MG SR CAPSULE PO SCH (10:24)
[2024-03-30 12:00] VITALS: BP 118/78; PULSE 111; RESP 20; TEMP 36.61404; O2SAT 99
[2024-03-30 16:00] VITALS: BP 133/70; PULSE 105; RESP 20; TEMP 36.50292; O2SAT 97
[2024-03-30 20:00] VITALS: BP 157/98; PULSE 102; RESP 20; TEMP 36.22512; O2SAT 98
[2024-03-31] VITALS (9 sets, daily range): BP systolic 125–158; BP diastolic 74–105; PULSE 95–121; RESP 18–20; TEMP 36.00288–37.61412; O2SAT 95–100
[2024-03-31 07:13] LABS: BASOPHILS % 0.5 % (0.0-2.0); EOSINOPHILS % 7.2 % (0.0-5.0); HEMATOCRIT. 25.3 % (42.0-52.0); HEMOGLOBIN. 8.3 g/dL (14.0-18.0); LYMPHOCYTES % 22.6 % (20.0-50.0); MEAN CORPUSCULAR HEMOGLOBIN 27.4 pg (28.0-32.0); MEAN CORPUSCULAR HGB CONC 32.6 g/dL (31.0-37.0); MEAN CORPUSCULAR VOLUME 83.9 fL (80.0-94.0); MEAN PLATELET VOLUME 9.5 fl (7.4-10.4); MONOCYTES % 10.1 % (2.0-8.0); NEUTROPHILS % 59.6 % (40.0-76.0); PLATELET 255 x1000/uL (130-400); RED BLOOD CELL COUNT 3.02 mill/uL (4.7-6.1); RED CELL DISTRIBUTION WIDTH 15.7 % (11.6-14.6); WHITE BLOOD COUNT 8.4 x1000/uL (4.5-11.0)
[2024-03-31 07:25] LABS: POTASSIUM 4.9 mEq/L (3.5-5.1)
[2024-03-31 07:27] LABS: CALCIUM 9.9 mg/dL (8.7-10.4)
[2024-03-31 07:34] LABS: PHOSPHORUS 6.2 mg/dL (2.5-4.9)
[2024-03-31 07:44] LABS: CREATININE 12.7 mg/dL (0.6-1.3)
[2024-03-31] MEDS: CLONIDINE 0.1MG TABLET PO SCH (14:42)
[2024-04-01 08:00] VITALS: BP 139/78; PULSE 99; RESP 18; TEMP 36.50292; O2SAT 99
[2024-04-01 12:00] VITALS: BP 108/64; PULSE 102; RESP 18; TEMP 36.61404; O2SAT 96
[2024-04-01] MEDS: HYDROCODONE/ACETAMINOPHEN 5/325MG TABLET PO PRN (13:03)
[2024-04-01 16:00] VITALS: BP 112/68; PULSE 99; RESP 18; TEMP 36.6696; O2SAT 99
[2024-04-01 20:00] VITALS: BP 114/78; PULSE 97; RESP 20; TEMP 36.55848; O2SAT 98
[2024-04-01] MEDS: CLONIDINE 0.1MG TABLET PO SCH (20:25)
[2024-04-02] VITALS: BP 108/74; PULSE 94; RESP 20; TEMP 36.89184; O2SAT 97
[2024-04-02 04:00] VITALS: BP 127/87; PULSE 87; RESP 20; TEMP 36.6696; O2SAT 96
[2024-04-02 08:00] VITALS: BP 127/82; PULSE 99; RESP 18; TEMP 36.72516; O2SAT 97
[2024-04-02 08:23] LABS: BASOPHILS % 0.8 % (0.0-2.0); EOSINOPHILS % 5.9 % (0.0-5.0); HEMATOCRIT. 22.9 % (42.0-52.0); HEMOGLOBIN. 7.4 g/dL (14.0-18.0); LYMPHOCYTES % 20.8 % (20.0-50.0); MEAN CORPUSCULAR HEMOGLOBIN 27.5 pg (28.0-32.0); MEAN CORPUSCULAR HGB CONC 32.2 g/dL (31.0-37.0); MEAN CORPUSCULAR VOLUME 85.2 fL (80.0-94.0); MONOCYTES % 10.5 % (2.0-8.0); PLATELET 244 x1000/uL (130-400); RED BLOOD CELL COUNT 2.69 mill/uL (4.7-6.1); RED CELL DISTRIBUTION WIDTH 15.7 % (11.6-14.6); WHITE BLOOD COUNT 7.2 x1000/uL (4.5-11.0)
[2024-04-02 08:27] LABS: POTASSIUM 4.8 mEq/L (3.5-5.1)
[2024-04-02 08:28] LABS: CALCIUM 9.9 mg/dL (8.7-10.4)
[2024-04-02 08:56] LABS: CREATININE 12.2 mg/dL (0.6-1.3)
[2024-04-02 12:00] VITALS: BP 113/87; PULSE 79; RESP 18; TEMP 37.2252; O2SAT 95
[2024-04-02 16:00] VITALS: BP 122/82; PULSE 94; RESP 18; TEMP 36.55848; O2SAT 99
[2024-04-02 19:53] VITALS: BP 118/85; PULSE 85; RESP 19; TEMP 36.50292; O2SAT 97
[2024-04-02] MEDS: HYDRALAZINE HCL 25MG TABLET PO SCH (21:47)
[2024-04-03] VITALS (13 sets, daily range): BP systolic 110–148; BP diastolic 70–90; PULSE 70–112; RESP 16–20; TEMP 35.78064–36.6696; O2SAT 93–100
[2024-04-03] MEDS: SORBITOL 70% SOLN 30ML PO NR (09:58)
[2024-04-03 10:18] LABS: BASOPHILS % 0.4 % (0.0-2.0); EOSINOPHILS % 4.7 % (0.0-5.0); HEMATOCRIT. 25.7 % (42.0-52.0); HEMOGLOBIN. 8.3 g/dL (14.0-18.0); LYMPHOCYTES % 14.4 % (20.0-50.0); MEAN CORPUSCULAR HGB CONC 32.3 g/dL (31.0-37.0); MEAN CORPUSCULAR VOLUME 83.7 fL (80.0-94.0); MONOCYTES % 7.7 % (2.0-8.0); NEUTROPHILS % 72.8 % (40.0-76.0); PLATELET 278 x1000/uL (130-400); RED BLOOD CELL COUNT 3.07 mill/uL (4.7-6.1); RED CELL DISTRIBUTION WIDTH 15.6 % (11.6-14.6); WHITE BLOOD COUNT 9.9 x1000/uL (4.5-11.0)
[2024-04-03 10:21] LABS: POTASSIUM 5.1 mEq/L (3.5-5.1)
[2024-04-03 10:29] LABS: PHOSPHORUS 6.1 mg/dL (2.5-4.9)
[2024-04-03 10:39] LABS: CREATININE 12.9 mg/dL (0.6-1.3)
[2024-04-03] MEDS ORDERED: SORBITOL 70% SOLN 30ML PO PRN (18:00)
[2024-04-04] VITALS: BP 95/67; PULSE 89; RESP 18; TEMP 36.114; O2SAT 100
[2024-04-04 04:00] VITALS: BP 112/73; PULSE 70; RESP 20; TEMP 36.6696; O2SAT 98
[2024-04-04 12:00] VITALS: BP 101/55; PULSE 70; RESP 18; TEMP 36.50292; O2SAT 98
[2024-04-04 16:00] VITALS: BP 103/60; PULSE 89; RESP 19; TEMP 36.33624; O2SAT 97
[2024-04-04 20:00] VITALS: BP 106/82; PULSE 86; RESP 16; TEMP 36.44736; O2SAT 96
[2024-04-05] VITALS: BP 101/53; PULSE 75; RESP 18; TEMP 36.16956; O2SAT 96
[2024-04-05 00:10] VITALS: PULSE 64; RESP 18; O2SAT 97
[2024-04-05] MEDS: IPRATROPIUM/ALBUTEROL 0.5-3(2.5)MG/3ML NEB HHN PRN (00:10)
[2024-04-05 04:00] VITALS: BP_SYST 106; BP_SYST 112; BP_DIAS 73; BP_DIAS 82; PULSE 76; PULSE 86; RESP 16; RESP 17; TEMP 36.22512; TEMP 36.44736; O2SAT 96
[2024-04-05 08:00] VITALS: BP 110/66; PULSE 67; RESP 20; TEMP 36.33624; O2SAT 99
[2024-04-05] MEDS ORDERED: LACTULOSE 20G/30ML UDC PO PRN (10:30)
[2024-04-05] MEDS ORDERED: MAGNESIUM HYDROXIDE 400MG/5ML 30ML UDC PO PRN (10:30)
[2024-04-05] MEDS ORDERED: BISACODYL 10MG SUPP PR PRN (10:30)
[2024-04-05 11:05] VITALS: BP 110/66; PULSE 67; TEMP 97.4; O2SAT 99
== END 2024-04-05 13:20 | disposition home or self-care (01) | DRG 194 ==
LOC: ER 20:55 → 5WST 03-26 02:20 → EDBEDREQ 03-26 02:35 → EDBEDREQTM 03-26 02:35 → 8WST 03-26 16:44 → 6WST 04-04 12:12
PROVIDERS: ADMIT Internal Medicine; ATTEND Internal Medicine
PROC: 5A1D70Z Performance of Urinary Filtration, Intermittent, Less than 6 Hours Per Day (ICD-10-PCS; 2024-03-27)
PROC: 0JH63XZ Insertion of Tunneled Vascular Access Device into Chest Subcutaneous Tissue and Fascia, Percutaneous Approach (ICD-10-PCS; principal; 2024-03-29)
PROC: 02HV33Z Insertion of Infusion Device into Superior Vena Cava, Percutaneous Approach (ICD-10-PCS; 2024-03-29)
PROC: B5181ZA Fluoroscopy of Superior Vena Cava using Low Osmolar Contrast, Guidance (ICD-10-PCS; 2024-03-29)
PROC: B548ZZA Ultrasonography of Superior Vena Cava, Guidance (ICD-10-PCS; 2024-03-29)
PROC: 5A1D70Z Performance of Urinary Filtration, Intermittent, Less than 6 Hours Per Day (ICD-10-PCS; 2024-03-29)
PROC: 5A1D70Z Performance of Urinary Filtration, Intermittent, Less than 6 Hours Per Day (ICD-10-PCS; 2024-03-31)
PROC: 5A1D70Z Performance of Urinary Filtration, Intermittent, Less than 6 Hours Per Day (ICD-10-PCS; 2024-04-03)
DX: I13.2 Hypertensive heart and chronic kidney disease with heart failure and with stage 5 chronic kidney disease, or end stage renal disease (principal); N18.6 End stage renal disease; J96.90 Respiratory failure, unspecified, unspecified whether with hypoxia or hypercapnia; T82.42XA Displacement of vascular dialysis catheter, initial encounter; I50.33 Acute on chronic diastolic (congestive) heart failure; E87.5 Hyperkalemia; J44.9 Chronic obstructive pulmonary disease, unspecified; G40.909 Epilepsy, unspecified, not intractable, without status epilepticus; E78.5 Hyperlipidemia, unspecified; Z20.822 Contact with and (suspected) exposure to COVID-19; D64.9 Anemia, unspecified; F19.10 Other psychoactive substance abuse, uncomplicated; Z83.3 Family history of diabetes mellitus; Z91.148 Patient's other noncompliance with medication regimen for other reason; Z91.158 Patient's noncompliance with renal dialysis for other reason; Z99.2 Dependence on renal dialysis; Z82.49 Family history of ischemic heart disease and other diseases of the circulatory system
CPT/HCPCS: 36415; 36558; 71045; 76770; 76937; 77001; 80048; 80305; 80320; 83735; 83880; 84100; 84484; 85025; 86705; 86706; 86709; 87340; 87426; 90935; 93005; 94640; 97162; 97535; 99285; C1750; C1769; J0690; J0885; J1642; J1650; J2405; J2704; J3010; J3490; G0480